=== PATIENT | female | born 1950 | race Caucasian/White ===

== ENCOUNTER → 2018-02-20 | Outpatient (CLI) | payer MEDICARE ==
[~2018-02-20] MED LIST: BENICAR40 MG PO; LEXAPRO10 MG PO; RELPAX40 MG PO; VESICARE5 MG PO
== END | disposition home or self-care (01) ==
LOC: CDC 11:11
DX: I10 Essential (primary) hypertension (principal); R07.89 Other chest pain
CPT/HCPCS: 93000